=== PATIENT | female | born 1975 | race Caucasian/White ===

== ENCOUNTER → 2017-08-24 | Outpatient (REF) | payer OTHER | LOC: M SFHCLERA 18:48 | PROVIDERS: ATTEND Nurse Practitioner Family | DX: J02.9 Acute pharyngitis, unspecified (principal) ==

== ENCOUNTER → 2018-11-10 | Outpatient (CLI) | payer OTHER ==
--- NOTE | 2018-11-10 18:38 | REP ---
LEFT BREAST ULTRASOUND: 11/10/2018. Clinical history: Palpable lump left breast towards the axilla 4 cm firm tissue described on clinical note. The patient marked the area in question. Sonographic evaluation of the upper outer quadrant of the left breast with the left axilla targeted and showing a lymph node 3.1 x 2.7 x 0.6 cm and has abundant fat throughout the hilum and central portion with a rim of hypoechoic peripheral tissue. This corresponds to the same lymph node by size and appearance, also fatty replaced, on the mammogram today. Beneath the area of the lump and 2 o'clock. There were two small cysts seen 6.0 x 3.6 x 1.9 mm at 5 cm from the nipple. Another 6 x 5 x 5 mm cyst also seen 5 mm nipple. There are a few dilated ducts without filling defects seen. Impression: 1. Large but fatty replaced lymph node in the left axilla. The site of the reported palpable finding 3.1 x 2.7 x 0.6 cm. 2. There are two small cysts also seen beneath the marker in the 2 o'clock position upper outer quadrant left breast both 5 cm from the nipple. One is 6.1 x 3.6 mm other is 6 x 5 mm. Please see mammogram report this date for final assessment and recommendation. Electronically Signed by Craig Caraballo MD 11/10/2018 08:00 P
--- NOTE | 2018-11-10 18:44 | REP ---
BILATERAL DIGITAL DIAGNOSTIC MAMMOGRAM: 11/10/2018. Comparison: Left breast ultrasound 11/10/2018, screening mammogram 03/24/2016, 02/25/2015 Clinical history: A 4 cm palpable area in the axilla. The patient marked this area herself. Technique: 2D and 3D tomosynthesis views: Two-view mammography with additional exaggerated left CC and magnified left CC, MLO and true MLO images. Findings: Scattered heterogeneously dense fibroglandular elements in the retroareolar zone of symmetric pattern and not much changed from the previous study. This may lessen the sensitivity of mammography. In the left axilla there is a marker placed by the patient and immediately deep to it is the a large fat replaced axillary node. There is also tissue asymmetry or nodule in the axillary tail below this similar to the previous studies. There are no dominant masses, areas of architectural distortion, skin thickening, clustered microcalcification or other secondary signs of malignancy. Spot magnified views confirm these findings. There are no additional findings. Left breast ultrasound: In the axilla is a single large lymph node measuring 3.1 x 2.7 x 0.6 cm with the diffuse fatty change at the hilum and centrally and a peripheral rim of hypoechoic tissue, a normal morphologic fat replaced nodes but large. Inferior to the marker at the 2 o'clock position with two simple cysts, one at 6.1 x 3.6 mm and the other 6 x 5 mm, both 5 cm from nipple. A few dilated ducts are also seen in the 2 o'clock position. Impression: 1. BIRADS ACR category II, benign. Benign findings. No evidence of malignancy. Palpable finding represents a prominent node but morphologically normal with abundant fat in this thin rim of hypoechoic tissue. There are also two small cysts inferior to the palpable finding in the upper outer quadrant at 2 o'clock position, both about 6 mm. This negative report should not deter further evaluation of a clinically significant or suspicious palpable findings. This mammogram was interpreted with the aid of an FDA-approved computer-aided detection system. The patient states she had a clinical breast exam in 10/2018. The patient letter being requested is M2 dense. [facility] lifetime risk assessment is 13.5%. Electronically Signed by Craig Caraballo MD 11/10/2018 08:00 P
== END ==
LOC: M RAD 13:27
PROVIDERS: ATTEND Obstetrics & Gynecology
DX: R59.0 Localized enlarged lymph nodes (principal); N63.21 Unspecified lump in the left breast, upper outer quadrant

== ENCOUNTER → 2019-12-02 | Outpatient (REF) | payer OTHER | LOC: M SFHCLERA 11:04 | PROVIDERS: ATTEND Physician Assistant | DX: R09.81 Nasal congestion (principal) ==

== ENCOUNTER 2021-12-03 06:16 | Inpatient (IN) | payer OTHER ==
[2021-12-03] VITALS (7 sets, daily range): BP systolic 117–134; BP diastolic 62–78
[~2021-12-03] VITALS: Ht 152.4 cm; Wt 60.8 kg
[~2021-12-03 06:16] MED LIST: ACETAMINOPHEN 500 MG TAB PO ONE; FERR325T3 PO; GABAPENTIN 300 MG CAP PO ONE; LR 1,000 ML IV ONE; PROV10TA PO; VITA500C24 PO; ceFAZolin SOD 2 GM in IV 1 EA IV ONE
[2021-12-03] MEDS ORDERED: METHYLENE BLUE 0.5% (5MG/ML) 10 ML AMP (PROVAYBLUE) As Ordered ONE (07:09)
[2021-12-03] MEDS ORDERED: SILVER NITRATE APPLICATOR As Ordered ONE (07:09)
[2021-12-03] MEDS ORDERED: BOTOX THERAPEUTIC 100 UNIT VIAL (J0585 PER 1 UNIT) As Ordered ONE (07:10)
[2021-12-03 07:19] LABS: HEMATOCRIT 44.7 % (36.0-47.0); HEMOGLOBIN 15.7 g/dl (12.0-15.5); MEAN CORPUSCULAR HEMOGLOBIN 29.8 pg (27.0-33.0); MEAN CORPUSCULAR HGB CONC 35.1 g/dl (32.0-36.5); MEAN CORPUSCULAR VOLUME 84.8 fl (80.0-96.0); PLATELET COUNT, AUTOMATED 213 10^3/uL (150-450); RED BLOOD COUNT 5.27 10^6/uL (4.00-5.40); WHITE BLOOD COUNT 5.4 10^3/uL (4.0-10.0)
[2021-12-03] MEDS ORDERED: fentaNYL 100 MCG/2 ML INJECTION As Ordered ONE (07:21)
[2021-12-03] MEDS ORDERED: ROCURONIUM BROMIDE 50 MG/5 ML VIAL As Ordered ONE ×2 (07:21→08:08)
[2021-12-03] MEDS ORDERED: MIDAZOLAM INJ 2MG/2ML VIAL (J2250 PER 1MG) As Ordered ONE (07:21)
[2021-12-03] MEDS ORDERED: LIDOCAINE 2% 100MG/5ML SDV (FOR ANES.) As Ordered ONE (07:21)
[2021-12-03] MEDS ORDERED: propofoL 200 MG/20 ML VIAL As Ordered ONE (07:21)
[2021-12-03 07:35] LABS: ALBUMIN 3.9 GM/DL (3.2-5.2); ALT/SGPT 19 U/L (12-78); BILIRUBIN,TOTAL 0.5 MG/DL (0.2-1.0); BLOOD UREA NITROGEN 12 MG/DL (7-18); CALCIUM LEVEL 8.7 MG/DL (8.5-10.1); CARBON DIOXIDE LEVEL 28 MEQ/L (21-32); CHLORIDE LEVEL 110 MEQ/L (98-107); CREATININE FOR GFR 0.53 MG/DL (0.55-1.30); GLOMERULAR FILTRATION RATE > 60.0 (>58); GLUCOSE, FASTING 83 MG/DL (70-100); POTASSIUM SERUM 3.7 MEQ/L (3.5-5.1); SODIUM LEVEL 142 MEQ/L (136-145); TOTAL PROTEIN 6.9 GM/DL (6.4-8.2)
[2021-12-03 07:37] LABS: HCG, SERUM QUALITATIVE NEGATIVE (NEGATIVE)
[2021-12-03] MEDS ORDERED: dexameTHASONE 4 MG/ML 1ML VIAL (J1100 PER 1MG) As Ordered ONE (07:48)
[2021-12-03] MEDS ORDERED: METOCLOPRAMIDE INJ 10MG/2ML VIAL (J2765 PER 1) As Ordered ONE (08:08)
[2021-12-03] MEDS ORDERED: SUGAMMADEX SODIUM 500 MG/5 ML VIAL (BRIDION) As Ordered ONE (08:08)
[2021-12-03] MEDS ORDERED: KETOROLAC 60MG 2ML VIAL As Ordered ONE (08:08)
[2021-12-03] MEDS ORDERED: ONDANSETRON 4MG/2ML VIAL As Ordered ONE (08:08)
[2021-12-03] MEDS ORDERED: ACETAMINOPHEN 1000MG 100ML IV BTL (OFIRMEV) (J0131 PER 10MG) As Ordered ONE (08:08)
[2021-12-03] MEDS ORDERED: HYDROmorphone HCL 2MG/ML 1ML VIAL As Ordered ONE (08:17)
[2021-12-03] MEDS ORDERED: ePHEDrine SULFATE 25 MG/5 ML(5MG/ML) SYRINGE As Ordered ONE (08:29)
[2021-12-03] MEDS ORDERED: FLUORESCEIN 10% (100MG/ML) 5 ML VIAL As Ordered ONE (09:21)
[2021-12-03] MEDS ORDERED: DOCUSATE SODIUM 100MG CAPSULE PO PRN (10:35)
[2021-12-03] MEDS ORDERED: MORPHINE 4 MG/ML 1ML VIAL/SYRINGE (J2270) IV PRN (10:35)
[2021-12-03] MEDS ORDERED: ONDANSETRON 4MG/2ML VIAL IV PRN ×2 (10:35→10:45)
[2021-12-03] MEDS ORDERED: oxyCODONE 5MG TAB PO PRN (10:45)
[2021-12-03] MEDS ORDERED: fentaNYL 100 MCG/2 ML INJECTION IV PRN (10:45)
[2021-12-03] MEDS ORDERED: LR 1,000 ML IV SCH (10:45)
[2021-12-03] MEDS ORDERED: HYDROMORPHONE HCL 0.5 MG/ 0.5 ML SYRINGE (J1170 PER 1) IV PRN (10:45)
[2021-12-03] MEDS ORDERED: METOCLOPRAMIDE INJ 10MG/2ML VIAL (J2765 PER 1) IV PRN (10:45)
[2021-12-03] MEDS: oxyCODONE 5MG TAB PO PRN ×2 (13:14→18:42)
[2021-12-03] MEDS: SIMETHICONE 80MG CHEW TAB PO PRN (14:30)
[2021-12-03] MEDS: LR 1,000 ML IV SCH ×3 (15:10→21:02)
[2021-12-03] MEDS: KETOROLAC 30 MG/ML 1ML VIAL IV SCH ×2 (15:12→20:57)
[2021-12-03] MEDS: ONDANSETRON 4MG/2ML VIAL IV PRN (17:37)
[2021-12-03] MEDS ORDERED: ONDANSETRON 4MG/2ML VIAL IV ONE (20:45)
[2021-12-03] MEDS: ACETAMINOPHEN 500 MG TAB PO PRN (20:57)
[2021-12-03 21:06] LABS: MEAN CORPUSCULAR HEMOGLOBIN 30.1 pg (27.0-33.0); MEAN CORPUSCULAR HGB CONC 35.9 g/dl (32.0-36.5); MEAN CORPUSCULAR VOLUME 83.7 fl (80.0-96.0); PLATELET COUNT, AUTOMATED 170 10^3/uL (150-450); RED BLOOD COUNT 4.42 10^6/uL (4.00-5.40); WHITE BLOOD COUNT 12.4 10^3/uL (4.0-10.0)
[2021-12-03 21:13] LABS: HEMOGLOBIN 13.3 g/dl (12.0-15.5)
[2021-12-03] MEDS ORDERED: TRANEXAMIC ACID INJection 1,000 MG in D5W 100 ML IV ONE (21:25)
[2021-12-04 02:00] VITALS: BP 128/78
[2021-12-04] MEDS: KETOROLAC 30 MG/ML 1ML VIAL IV SCH (03:34)
[2021-12-04 06:00] VITALS: BP 125/66
[2021-12-04] MEDS: SIMETHICONE 80MG CHEW TAB PO PRN ×3 (06:27→15:42)
[2021-12-04] MEDS: ACETAMINOPHEN 500 MG TAB PO PRN (06:28)
[2021-12-04] MEDS: oxyCODONE 5MG TAB PO PRN ×3 (07:34→22:42)
[2021-12-04] MEDS: LR 1,000 ML IV SCH ×2 (07:34→16:40)
[2021-12-04] MEDS: ONDANSETRON 4MG/2ML VIAL IV PRN ×2 (07:41→15:43)
[2021-12-04 07:56] LABS: BASO % 0.2 % (0.0-1.0); EOS # 0.1 10^3/uL (0.0-0.5); EOS % 0.8 % (0.0-3.0); HEMATOCRIT 35.1 % (36.0-47.0); HEMOGLOBIN 12.3 g/dl (12.0-15.5); LYMPH # 1.7 10^3/uL (1.5-5.0); MEAN CORPUSCULAR HEMOGLOBIN 30.1 pg (27.0-33.0); MEAN CORPUSCULAR VOLUME 85.8 fl (80.0-96.0); MONO # 0.7 10^3/uL (0.0-0.8); MONO % 7.9 % (2.0-8.0); NEUTROPHILS # 6.6 10^3/uL (1.5-8.5); NEUTROPHILS % 71.8 % (36.0-66.0); PLATELET COUNT, AUTOMATED 185 10^3/uL (150-450); RED BLOOD COUNT 4.09 10^6/uL (4.00-5.40); WHITE BLOOD COUNT 9.2 10^3/uL (4.0-10.0)
[2021-12-04 08:08] LABS: INR 1.15; PROTHROMBIN TIME 15.1 SECONDS (12.7-14.5)
[2021-12-04 08:09] LABS: PARTIAL THROMBOPLASTIN TIME 31.1 SECONDS (25.9-37.0)
[2021-12-04 08:20] LABS: ALBUMIN 2.9 GM/DL (3.2-5.2); ALT/SGPT 14 U/L (12-78); BILIRUBIN,TOTAL 0.7 MG/DL (0.2-1.0); BLOOD UREA NITROGEN 7 MG/DL (7-18); CALCIUM LEVEL 8.3 MG/DL (8.5-10.1); CARBON DIOXIDE LEVEL 28 MEQ/L (21-32); CHLORIDE LEVEL 111 MEQ/L (98-107); GLOMERULAR FILTRATION RATE > 60.0 (>58); GLUCOSE, FASTING 91 MG/DL (70-100); POTASSIUM SERUM 3.6 MEQ/L (3.5-5.1); SODIUM LEVEL 143 MEQ/L (136-145); TOTAL PROTEIN 5.2 GM/DL (6.4-8.2)
[2021-12-04 10:00] VITALS: BP 128/81
[2021-12-04] MEDS: IBUPROFEN 800 MG TAB PO SCH ×2 (12:05→19:32)
[2021-12-04 14:00] VITALS: BP 115/63
[2021-12-04 20:00] VITALS: BP 120/70
[2021-12-05 04:00] VITALS: BP 120/65
[2021-12-05] MEDS: IBUPROFEN 800 MG TAB PO SCH (04:03)
[2021-12-05] MEDS ORDERED: COLA100C5 PO (07:48)
[2021-12-05] MEDS ORDERED: IBUP80TA PO (07:48)
[2021-12-05] MEDS ORDERED: OXYC-517 PO (07:48)
[2021-12-05] MEDS: SIMETHICONE 80MG CHEW TAB PO PRN (08:12)
[2021-12-05] MEDS: oxyCODONE 5MG TAB PO PRN (08:13)
[2021-12-05] MEDS: ACETAMINOPHEN 500 MG TAB PO PRN (10:39)
== END 2021-12-05 11:40 | disposition home or self-care (01) | DRG 743 ==
LOC: M OR 06:16 → M MS5PR 14:10
PROVIDERS: ADMIT Obstetrics & Gynecology; ATTEND Obstetrics & Gynecology
PROC: 0UTC0ZZ Resection of Cervix, Open Approach (ICD-10-PCS; 2021-12-03)
PROC: 0TJB8ZZ Inspection of Bladder, Via Natural or Artificial Opening Endoscopic (ICD-10-PCS; 2021-12-03)
PROC: 0UT90ZZ Resection of Uterus, Open Approach (ICD-10-PCS; principal; 2021-12-03 07:30)
PROC: 0UT70ZZ Resection of Bilateral Fallopian Tubes, Open Approach (ICD-10-PCS; 2021-12-03 07:30)
DX: D25.2 Subserosal leiomyoma of uterus (principal); D25.1 Intramural leiomyoma of uterus; N92.0 Excessive and frequent menstruation with regular cycle; N85.2 Hypertrophy of uterus